=== PATIENT | female | born 1985 | race Caucasian/White ===

== ENCOUNTER → 2019-04-27 12:31 | Outpatient (CLI) | payer OTHER, SELFPAY ==
[2019-04-27 13:45] LABS: Add Manual Diff / Slide Review NO; Basophils Absolute Auto 0 /uL (0-100); Basophils Percent Auto 0.6 % (0-2); Eosinophils Absolute Auto 100 /uL (0-450); Eosinophils Percent Auto 1.2 % (2-4); Hemoglobin 12.6 g/dL (12.0-16.0); Lymphocytes Absolute Auto 1400 /uL (1100-4500); Lymphocytes Percent Auto 21.3 % (25-40); Mean Corpuscular HGB Conc 35.1 % (30-36); Mean Corpuscular Hemoglobin 31.7 PG (26-34); Mean Corpuscular Volume 90.3 fL (80-100); Monocytes Absolute Auto 500 /uL (0-900); Monocytes Percent Auto 7.7 % (3-14); Neutrophils Absolute Auto 4500 /uL (1500-7000); Neutrophils Percent Auto 69.2 % (50-75); Platelet Count 189 X10^3/uL (150-400); Red Blood Cell Count 3.98 X10^6/uL (4.0-5.2); Red Cell Distribution Width 12.1 % (11.6-14.8); White Blood Cell Count 6.5 X10^3/uL (4.5-11.0)
[2019-04-27 15:18] LABS: Appearance Urine UA CLEAR; Bilirubin Urine UA NEGATIVE (NEGATIVE); Color Urine UA YELLOW; Glucose Urine UA NEGATIVE (Negative); Ketones Urine UA NEGATIVE (NEGATIVE); Leukocyte Esterase Urine UA NEGATIVE (NEGATIVE); Nitrite Urine UA NEGATIVE (Negative); Occult Blood Urine UA NEGATIVE (Negative); Protein Urine UA NEGATIVE (Negative); Urobilinogen Urine UA 0.2 E.U./dL (0.2)
[2019-04-27 15:22] LABS: pH Urine UA 6.5 (4.5-8.0)
[2019-04-27 16:27] LABS: Urine N gonorrhoeae NOT DETECTED
[2019-04-27 16:36] LABS: Urine Chlamydia NOT DETECTED
[2019-04-27 16:49] LABS: Hepatitis B Surface Antigen NEGATIVE s/c (NEGATIVE); Rubella Antibody IgG 47.4 IU/mL (>15)
[2019-04-27 17:04] LABS: HIV 1 & 2 Ab/Ag 4th Gen Combo NEGATIVE (NEGATIVE); Hep C Virus Ab w/Reflex Quant NEGATIVE s/c (NEGATIVE)
[2019-04-28 10:09] LABS: RPR Screen Non Reactive (Non Reactive); Varicella IgG Antibody 273 index (Immune >165)
== END ==
PROVIDERS: PCP Nurse Practitioner Family; Referring Provider Specialist; Visit Provider Specialist
DX: Z34.01 Encounter for supervision of normal first pregnancy, first trimester (principal); Z3A.09 9 weeks gestation of pregnancy
CPT/HCPCS: 36415; 80055; 81003; 86787; 86803; 86850; 86900; 86901; 87086; 87389; 87491; 87591

== ENCOUNTER → 2019-07-19 10:09 | Outpatient (CLI) | payer OTHER, SELFPAY ==
--- NOTE | 2019-07-19 10:11 | DI.US.S_ITS ---
PROCEDURE: US OB >= 14 WEEKS FETUS INDICATIONS: ANATOMY OUTSIDE/PRIOR DATING DATA: Last menstrual period (LMP): 02/21/19. LMP-based estimated date of delivery (PIETER): 11/28/19. First dating scan (date and location): 07/19/19. Estimated date of delivery (PIETER) from first dating scan: 11/26/19. TECHNIQUE: Real-time scanning was performed of the fetus, with image documentation and biometric measurements. Endovaginal scanning: Performed COMPARISON: None. FINDINGS: General: A single living intrauterine gestation is present. Presentation: Transverse, head to the maternal right Placenta: Placental position is anterior, without previa. Amniotic fluid index: 16.2 cm, normal range is 5-24 cm. heart rate: 136 beats per minute. Maternal cervical canal: 4.3 cm long. Normal lower limit is 2.5 cm. biometrics: Biparietal diameter: 21 weeks 4 days Head circumference: 21 weeks 0 days Abdominal circumference: 21 weeks 5 days Femur length: 21 weeks 2 days Estimated gestational age from initial scan: not applicable. Composite gestational age from present scan: 21 weeks 3 days Estimated weight and percentile: 431 g; 66th percentile Measurement variability for biometric dating: +/- 7 days from 14 weeks to 15 weeks 6 days gestation, +/- 10 days from 16 weeks to 21 weeks 6 days gestation, +/- 2 weeks from 22 weeks to 27 weeks 6 days gestation, +/- 3 weeks for 28 weeks gestation or later. weight reference: 4500 g or EFW >90/95% is considered macrosomia or large for gestational age. EFW <10% is small for gestational age. EFW 5% or less is considered intra-uterine growth restriction. Anatomic survey: Neuro: Ventricles are non-dilated at less than 10 mm. Cisterna magna is normal at 3-11 mm. Cerebellum is normal in size and morphology. Nuchal skin fold: Normal at less than 6 mm between 14-21 weeks gestational age. Face: Nose and lips, facial profile are normal. Spine: No evidence for spina bifida. Heart: 4-chambered heart is present, with normal ventricular outflow tracts. Diaphragm: Diaphragm is intact. Stomach: Left-sided stomach is present. Kidneys: No hydronephrosis. Normal is less than 5 mm in 2nd trimester, less than 7 mm in 3rd trimester. Cord: 3-vessel cord has orthotopic insertion. Bladder: Normal in size. Extremities: All 4 extremities identified. IMPRESSION: 1. Single living intrauterine fetus with estimated ultrasound gestational age of 21 weeks 3 days corresponding to ultrasound PIETER of 11/26/2019. 2. Normal anatomic survey. Dictated by: Oksana Menjivar MD, PhD on 07/19/2019 at 11:54 Approved by: Oksana Menjivar MD, PhD on 07/19/2019 at 11:58
== END ==
PROVIDERS: PCP Nurse Practitioner Family; Referring Provider Specialist; Visit Provider Specialist
DX: Z34.02 Encounter for supervision of normal first pregnancy, second trimester (principal); Z3A.21 21 weeks gestation of pregnancy
CPT/HCPCS: 76811

== ENCOUNTER → 2019-10-24 11:22 | Outpatient (CLI) | payer OTHER, SELFPAY ==
[2019-10-24 13:00] LABS: Free T4, Direct Thyroxine 0.69 ng/dL (0.78-2.19)
[2019-10-24 13:14] LABS: Thyroid Stimulating Hormone 1.85 uIU/mL (0.47-4.68)
== END ==
PROVIDERS: PCP Nurse Practitioner Family; Referring Provider Specialist; Visit Provider Specialist
DX: E01.0 Iodine-deficiency related diffuse (endemic) goiter (principal)
CPT/HCPCS: 36415; 84439; 84443

== ENCOUNTER 2019-10-29 07:40 | Inpatient (IN) | payer OTHER, SELFPAY ==
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
[2019-10-29] MEDS: IBUPROFEN 600 MG TABLET PO (08:58)
[2019-10-29 08:59] LABS: Add Manual Diff / Slide Review NO; Basophils Absolute Auto 0 /uL (0-100); Basophils Percent Auto 0.3 % (0-2); Eosinophils Absolute Auto 0 /uL (0-450); Eosinophils Percent Auto 0.1 % (2-4); Hematocrit 36.4 % (36-46); Hemoglobin 12.6 g/dL (12.0-16.0); Lymphocytes Absolute Auto 700 /uL (1100-4500); Lymphocytes Percent Auto 6.5 % (25-40); Mean Corpuscular HGB Conc 34.6 % (30-36); Mean Corpuscular Hemoglobin 32.3 PG (26-34); Mean Corpuscular Volume 93.1 fL (80-100); Monocytes Absolute Auto 500 /uL (0-900); Monocytes Percent Auto 4.3 % (3-14); Neutrophils Absolute Auto 9800 /uL (1500-7000); Neutrophils Percent Auto 88.8 % (50-75); Platelet Count 125 X10^3/uL (150-400); Red Blood Cell Count 3.91 X10^6/uL (4.0-5.2)
--- NOTE | 2019-10-29 14:37 | PM.OBDS.1 ---
Discharge Providers Provider Date of admission: 10/29/19 07:40 Discharge Date: 10/29/19 Primary care physician: FERCHO Jones Consults: 10/30/19 08:01 Consult to Civil Preparedness Officer Routine Comment: Discharge provider: Linsey Arango MD Summary Hospital Course Date Patient Seen: 10/29/19 Time Patient Seen: 14:43 Procedures: , precipitous, 10/29/19, Dr. Sol, no complications Hospital Course: Remarkable for persistent lower uterine segment atony immediately following delivery. Pitocin and methergine given with good effect. EBL 300 cc. Lochia now less than menses. Tolerating full diet with no nausea or vomiting. Ambulating well. Due to prematurity, baby was transferred to tertiary care facility after . It has now been about 9 hours and patient requested to be discharged early to be able to join her baby. She denies pain. At time of discharge, she is afebrile with stable vital signs throughout. Peripartum Data Infant Delivery Method: Natural Vaginal Laceration Description: Perineal - 1st Degree complications: none Status at Discharge Cognitive/behavioral status at discharge: at baseline, oriented Functional status at discharge: independent ambulation Overall status at discharge: patient is progressing back to baseline Time Spent with Patient Time attestation: Total time spent providing and/or coordinating discharge services: 35 Objective Labs Result Diagrams: 10/29/19 07:00 Labs: Laboratory Results - last 24 hr 10/29/19 10/29/19 07:00 07:00 WBC 11.0 RBC 3.91 L Hgb 12.6 Hct 36.4 MCV 93.1 MCH 32.3 MCHC 34.6 RDW 13.0 Plt Count 125 L Neut % (Auto) 88.8 H Lymph % (Auto) 6.5 L [place] % (Auto) 4.3 Eos % (Auto) 0.1 L Baso % (Auto) 0.3 Neut # (Auto) 9800 H Lymph # (Auto) 700 L [place] # (Auto) 500 Eos # (Auto) 0 Baso # (Auto) 0 Blood Type O Positive Antibody Screen Negative Discharge Plan Discharge Plan Patient Disposition: Home Discharge orders & Medications Prescriptions: New ibuprofen 600 mg Tablet 600 mg PO Q6HR PRN (Reason: Pain, Mild (1-3)) Qty: 45 RF: 2 Continued prenat.vits,ramos,xzd-akhf-ounuv Tablet 1 tab PO DAILY RF: 0 Discontinued (DME) blood-glucose meter [Blood Glucose Monitoring] Kit See Rx Instructions .ROUTE .MEDSUPPLY Qty: 1 RF: 0 (DME) blood sugar diagnostic [Blood Glucose Test] Strip See Rx Instructions .ROUTE .MEDSUPPLY Qty: 120 RF: 3 (DME) lancets Misc See Rx Instructions .ROUTE .MEDSUPPLY Qty: 120 RF: 3 Follow up/Referrals: Janet Zapata ARNP [Primary Care Provider] - 6 Weeks Kamila Santa MD [Physician] - (To call [phone] to make an appointment to see Dr Santa in 5 weeks ) Diet/Activity/Treatments Diet: Diet as Tolerated Activity: Pelvic rest x 6 weeks Skin/Wound/Dressing Care Report to your healthcare provider any signs of infection, such as:: chills, fever and increased pain Visit Report/Discharge Packet Stand Alone Forms: Discharge: Care Visit Report Forms: Patient Portal/API, Stroke Signs & Symptoms Discharge Data Primary Care Provider: Janet Zapata Attending Provider: Kami Sol Admit Date/Time: 10/29/19 07:40 Discharges patient from system. Discharge Date/Time: 10/29/19 15:30
[2019-10-29 15:06] VITALS: BP 110/61; PULSE 62; RESP 17; TEMP 36.4
== END 2019-10-29 15:30 | disposition home or self-care (01) | DRG 807 ==
PROVIDERS: Admitting Provider Obstetrics & Gynecology; PCP Nurse Practitioner Family; Referring Provider Obstetrics & Gynecology; Visit Provider Obstetrics & Gynecology
DX: O60.14X0 Preterm labor third trimester with preterm delivery third trimester, not applicable or unspecified (principal); O24.429 Gestational diabetes mellitus in childbirth, unspecified control; Z3A.35 35 weeks gestation of pregnancy; Z37.0 Single live birth; O70.0 First degree perineal laceration during delivery; O62.3 Precipitate labor; O69.81X0 Labor and delivery complicated by cord around neck, without compression, not applicable or unspecified
CPT/HCPCS: 36415; 59400; 59409; 85025; 86850; 86900; 86901; G0378; G0379